=== PATIENT | female | born 1970 | race Two or more races ===

== ENCOUNTER 2018-09-29 06:39 | Day surgery (SDC) | payer OTHER ==
[~2018-09-29] VITALS: Ht 162.6 cm; Wt 47.2 kg
[2018-09-29] MEDS ORDERED: INVANZ (06:58)
--- NOTE | 2018-09-29 07:01 | NUR ---
SE RECIBE PTE ALERTA Y ORIENTADA X3 QUIEN REFIERE ABCESO EN GLUTEO CLAUDY, SE OBSERVA AREA ENRROJECITA SIN SECRECIONES. PTE REFERIDA X DR. CARTER. SE ALEJANDRO S/V Y SE UBICA EN AREA DE OBSERVACION.
--- NOTE | 2018-09-29 08:04 | NUR ---
EVALUADA POR EL DEL SE ORIENTA SOBRE TRATAMIENTO MEDICO POR MRS.MULTANI LE EXTRAE MUESTRAS DE QUIRINO Y SE ENVIAN AL LABORATORIO. SE MANTIENE EN OBSERVACION.
== END 2018-09-29 13:00 | disposition home or self-care (01) ==
LOC: ER 06:39 → CIR.AMB 08:00 → SEC-K 08:17 → O/R 08:17 → ER 08:17 → EDSTATUS 12:00 → CIR.AMB 13:00 → SEC-K 16:30 → O/R 16:30
DX: K61.39 Other ischiorectal abscess (principal)

== ENCOUNTER 2019-01-03 06:21 | Day surgery (SDC) | payer OTHER ==
[~2019-01-03 06:21] MED LIST: INVANZ
== END 2019-01-03 15:25 | disposition home or self-care (01) ==
LOC: CIR.AMB 06:21
DX: K61.39 Other ischiorectal abscess (principal)

== ENCOUNTER 2019-02-12 15:38 | Inpatient (IN) | payer OTHER ==
[~2019-02-12] VITALS: Ht 162.6 cm; Wt 48.5 kg
== END 2019-02-18 13:10 | disposition home or self-care (01) | DRG 583 ==
LOC: O/R 02-16 06:41 → OB/GYN 02-16 06:41 → SURH 02-16 10:00 → OB/GYN 02-16 16:40
PROVIDERS: Plastic Surgery; ADMIT Surgery
PROC: 0HPT0NZ Removal of Tissue Expander from Right Breast, Open Approach (ICD-10-PCS; 2019-02-16)
PROC: 0HTV0ZZ Resection of Bilateral Breast, Open Approach (ICD-10-PCS; principal; 2019-02-16 14:30)
PROC: 0HPU0NZ Removal of Tissue Expander from Left Breast, Open Approach (ICD-10-PCS; 2019-02-16 14:30)
DX: C50.811 Malignant neoplasm of overlapping sites of right female breast (principal); Z90.13 Acquired absence of bilateral breasts and nipples; Z17.0 Estrogen receptor positive status [ER+]

== ENCOUNTER 2019-08-03 05:56 | Day surgery (SDC) | payer OTHER | END 2019-08-03 11:10 | disposition home or self-care (01) | LOC: AMB-ENDOS 05:56 | PROVIDERS: ATTEND Colon & Rectal Surgery | DX: K62.89 Other specified diseases of anus and rectum (principal); K57.30 Diverticulosis of large intestine without perforation or abscess without bleeding; K64.1 Second degree hemorrhoids ==

== ENCOUNTER 2023-09-21 06:51 | Day surgery (SDC) | payer OTHER ==
[2023-09-21] MEDS ORDERED: CEFTRIAXONE SODIUM 2,000 MG VIAL ONE (09:47)
[2023-09-21] MEDS ORDERED: METRONIDAZOLE/SODIUM CHLORIDE 500 MG/100 ML PIGGYBACK IV ONE (09:47)
[2023-09-21] MEDS ORDERED: POVIDONE-IODINE 118 ML BOTT TOP ONE (11:06)
[2023-09-21] MEDS ORDERED: DIBUCAINE 30 GM TUBE ONE (11:06)
[2023-09-21] MEDS ORDERED: HEMOSTATIC MATRIX 1 KIT KIT TOP ONE (11:07)
== END 2023-09-21 16:15 | disposition home or self-care (01) ==
LOC: CIR.AMB 06:51 → EDSTATUS 10:00 → SURH 10:00 → CIR.AMB 10:00
PROVIDERS: ATTEND Colon & Rectal Surgery
DX: K60.3 Anal fistula (principal); K62.89 Other specified diseases of anus and rectum; K92.1 Melena

== ENCOUNTER 2024-02-08 05:25 | Day surgery (SDC) | payer OTHER ==
[2024-02-08] MEDS ORDERED: CEFTRIAXONE SODIUM 2,000 MG VIAL IV SCH (10:45)
[2024-02-08] MEDS ORDERED: DIBUCAINE 30 GM TUBE RECTAL ONE (10:45)
[2024-02-08] MEDS ORDERED: HEMOSTATIC MATRIX 1 KIT KIT TOP ONE (10:45)
[2024-02-08] MEDS ORDERED: BUPIVACAINE HCL 30 ML VIAL IJ ONE (10:45)
[2024-02-08] MEDS ORDERED: LIDOCAINE HCL 1%/EPINEPHRINE 20ML VIAL IJ ONE (10:45)
[2024-02-08] MEDS ORDERED: POVIDONE-IODINE 118 ML BOTT TOP ONE (10:45)
[2024-02-08] MEDS ORDERED: METRONIDAZOLE/SODIUM CHLORIDE 500 MG/100 ML PIGGYBACK IV SCH (10:45)
== END 2024-02-08 14:10 | disposition home or self-care (01) ==
LOC: CIR.AMB 05:25
PROVIDERS: ATTEND Colon & Rectal Surgery
DX: K60.30 Anal fistula, unspecified (principal); K92.1 Melena; D05.11 Intraductal carcinoma in situ of right breast; H52.10 Myopia, unspecified eye; H52.4 Presbyopia